=== PATIENT | female | born 1990 | race Asian ===

== ENCOUNTER 2020-07-16 12:13 | Outpatient (CLI) | payer BC | END 2020-07-16 12:14 | disposition home or self-care (01) | LOC: LAB 12:13 | PROVIDERS: ATTEND Advanced Practice Midwife | DX: N96 Recurrent pregnancy loss (principal) | CPT/HCPCS: 84702 ==

== ENCOUNTER 2020-07-21 11:05 | Outpatient (CLI) | payer BC ==
--- NOTE | 2020-07-21 13:14 | Ultrasound Report ---
PROCEDURE: Pelvic w/Transvaginal INDICATIONS: RECURRENT LOSS TECHNIQUE: Real-time scanning was performed of the pelvic organs, with image documentation. Additional endovagi nal scanning was necessary due to incomplete visualization of the adnexal and endometrial structures by transabdominal scanning. COMPARISON: None. FINDINGS: Transabdominal scanning: Limited scanning through the kidneys shows no hydronephrosis. No pathologi c free abdominal or pelvic fluid. Endovaginal scanning: Uterus: Uterus is normal in size at 5.9 x 2.6 x 3.6 cm. The endometrium measures 6 mm in combined t hickness. Liquid endometrial contents can be seen. Nabothian cysts are incidentally noted. Ovaries: The right ovary measures 2.2 x 2.1 x 1.9 cm and the left ovary measures 2.1 x 1.9 x 2.3 cm. No significant ovarian abnormalities are seen, with cystic follicles seen on both sides. There are less than 12 follicles seen on each side. No adnexal masses are seen. IMPRESSION: Note: Contents of this addendum discussed by telephone with can be seen along the endometrial stripe , which is likely related to residual blood products. Reviewed by: Michael Lucero MD on 07/21/2020 12:12 PM [facility] Approved by: Michael Lucero MD on 07/21/2020 12:12 PM [facility] Station ID: [id number]
== END 2020-07-21 11:06 | disposition home or self-care (01) ==
LOC: DI 11:05
PROVIDERS: ATTEND Advanced Practice Midwife
DX: R93.89 Abnormal findings on diagnostic imaging of other specified body structures (principal)

== ENCOUNTER 2022-08-21 10:17 | Outpatient (CLI) | payer BC | END 2022-08-21 10:18 | disposition left against medical advice (07) | LOC: EMS 10:17 | DX: F41.9 Anxiety disorder, unspecified (principal); E11.65 Type 2 diabetes mellitus with hyperglycemia; R00.0 Tachycardia, unspecified ==

== ENCOUNTER 2023-07-10 18:24 | Outpatient (CLI) | payer MEDICAID ==
--- NOTE | 2023-07-10 19:18 | XRAY Report ---
PROCEDURE: Lumbar Spine Complete INDICATIONS: LOW BACK PAIN TECHNIQUE: 3 views of the lumbar spine were acquired. COMPARISON: None. FINDINGS: Bones: 5 [id number] vertebrae are present. There is normal bony alignment. No vertebral body compression fractures. No suspicious bony lesions. Moderate disc height loss at L4-5. Mild disc height loss at remaining levels. Soft tissues: Overlying bowel gas pattern is normal. No suspicious soft tissue calcifications. IMPRESSION: Mild to moderate, multilevel degenerative disc disease. Reviewed by: Zelalem White MD on 07/10/2023 7:17 PM PST Approved by: Zelalem White MD on 07/10/2023 7:17 PM PST Station ID: [id number]
== END 2023-07-10 18:25 | disposition home or self-care (01) ==
LOC: DI 18:24
PROVIDERS: ATTEND Physician Assistant Medical
DX: M51.36 Other intervertebral disc degeneration, lumbar region (principal)